=== PATIENT | female | born 1990 | race Hispanic/Latino ===

== ENCOUNTER 2022-11-20 05:53 | Day surgery (SDC) | payer BC ==
[2022-11-19 15:22] VITALS: BP 119/68
[2022-11-19 15:35] LABS: BASOPHILS % (AUTO) 0.5 % (0.0-5.0); HEMATOCRIT 34.4 % (36-48); LYMPHOCYTES % (AUTO) 22.3 % (21.0-51.0); MEAN CORPUSCULAR HEMOGLOBIN 28.9 pg (27.0-33.0); MEAN CORPUSCULAR HGB CONC 32.8 g/dL (32.0-36.0); MONOCYTES % (AUTO) 4.8 % (3.0-13.0); NEUTROPHILS % (AUTO) 68.2 % (40.0-77.0); PLATELET COUNT (AUTO) 247 K/uL (130-400); RED BLOOD CELL COUNT(AUTO) 3.91 MIL/uL (4.00-5.50); RED CELL DISTRIBUTION WIDTH 13.9 % (11.0-15.5); WHITE BLOOD COUNT (AUTO) 8.5 K/uL (4.8-10.8)
[~2022-11-20] VITALS: Ht 154.9 cm; Wt 51.3 kg
[~2022-11-20 05:53] MED LIST: PNV1TABL90 PO
[2022-11-20] MEDS ORDERED: CEFAZOLIN SODIUM 2 GM VIAL IVPB SCH (06:00)
[2022-11-20] MEDS ORDERED: LACTATED RINGERS 1000ML 1,000 ML IV SCH (06:00)
[2022-11-20 06:10] VITALS: BP 105/61
[2022-11-20] MEDS ORDERED: CEFAZOLIN SODIUM 2 GM VIAL IVPB ONE (06:30)
[2022-11-20] MEDS ORDERED: LIDOCAINE PF 100MG/5ML (2%) SYRINGE 5ML ONE (06:34)
[2022-11-20] MEDS ORDERED: PROPOFOL 10 MG/ML 20ML VIAL IV ONE (06:35)
[2022-11-20] MEDS ORDERED: FENTANYL CITRATE PF 50 MCG/1 ML 2ML VIAL ONE (06:35)
[2022-11-20] MEDS ORDERED: MIDAZOLAM HCL 1 MG/ML 2ML VIAL ONE (06:35)
[2022-11-20] MEDS ORDERED: EPHEDRINE SULFATE 50 MG/ML AMPULE ONE (06:46)
[2022-11-20] MEDS ORDERED: OXYTOCIN 10 USP UNITS/ML ONE (06:49)
[2022-11-20] MEDS ORDERED: ONDANSETRON 4MG INJ ONE (06:53)
[2022-11-20 08:45] VITALS: BP 109/73
[2022-11-20 09:00] VITALS: BP 106/65
== END 2022-11-20 09:14 | disposition home or self-care (01) ==
LOC: DAH 05:53
PROVIDERS: ATTEND Obstetrics & Gynecology
DX: O03.4 Incomplete spontaneous abortion without complication (principal); Z20.822 Contact with and (suspected) exposure to COVID-19; J45.909 Unspecified asthma, uncomplicated
CPT/HCPCS: 84703; 85025; 86850; 86900; 86901; 87426; 36415; 59812; A6260; J7030; A4351; J7120 ×2; J3010; J2001; J3490; J2250; J2590; J2704; J2405; J0690 ×2; A4215; A4223; A4222; A4221; A4663; A4600